=== PATIENT | male | born 1950 | race Hispanic/Latino ===

== ENCOUNTER 2017-10-01 23:43 | Inpatient (IN) | payer OTHER, SELFPAY ==
[2017-10-02 00:14] LABS: Absolute Monocytes 1.7 K/uL (0.1-1.3); Absolute Neutrophil 17.9 K/uL (1.8-8.0); Basophils % 0.2 % (0-1.3); Eosinophils % 0.1 % (0-4.4); Hematocrit 39.4 % (39.6-49.0); Lymphocytes % 4.9 % (15.3-44.8); MCH 30.1 pg (27.0-35.0); MPV 8.2 fL (7.6-11.3); Monocytes % 8.4 % (3.3-12.3); RBC Red Blood Cell Count 4.37 M/uL (4.33-5.43)
[2017-10-02] MEDS ORDERED: FENTANYL CITR 100 MCG/2 ML ONE ×2 (00:18→12:12)
[2017-10-02] MEDS ORDERED: PIPER/TAZO/NS 3.375gm 3.375 GM/100 ML BAG ONE ×2 (00:18→05:11)
[2017-10-02] MEDS ORDERED: NA CHLORIDE 0.9% 1,000 ML ONE ×2 (00:18→11:01)
[2017-10-02] MEDS ORDERED: VANCOMYCIN 1 GM/250 ML BAG ONE (00:18)
[2017-10-02] MEDS ORDERED: ONDANSETRON 4 MG/2 ML VIAL ONE (00:18)
[2017-10-02 00:21] LABS: Protime INR 1.47
[2017-10-02 00:44] LABS: ALT/SGPT 12 U/L (12-78); AST/SGOT 17 U/L (15-37); Albumin 2.1 g/dL (3.4-5.0); Alkaline Phosphatase 121 U/L (45-117); BUN Blood Urea Nitrogen 35 mg/dL (7-18); Bicarbonate 23 mmol/L (21-32); Bilirubin Direct 0.1 mg/dL (0-0.2); Bilirubin Total 0.4 mg/dL (0.2-1.0); CKMB Creatine Kinase MB < 1.0 ng/mL (0.3-3.6); Creatine Phosphokinase 32 U/L (39-308); Lipase 125 U/L (73-393); Magnesium 2.2 mg/dL (1.8-2.4); NT PRO-BNP 315 pg/mL (<125); Potassium 4.6 mmol/L (3.5-5.1); Protein, Total 8.1 g/dL (6.4-8.2); Sodium Level 128 mmol/L (136-145)
[2017-10-02 00:46] LABS: Glucose Level 441 mg/dL (74-106)
[2017-10-02 00:47] LABS: Blood Morphology Comment NOT SEEN (NOT SEEN); Platelet Estimate INCR
--- NOTE | 2017-10-02 01:39 | EDPHYS ---
Physician Documentation [facility] Name: Matt Huitron Age: 67 yrs Sex: Male : 1950 Arrival Date: 10/01/2017 Time: 23:50 Bed 6 Private MD: None, None ED Physician Felix De La Fuente HPI: 10/01 23:56 This 67 yrs old Male presents to ER via EMS with complaints of Abscess. tammy 23:56 The patient presents with an abscess of the back, The patient presents with cellulitis tammy of the back. Description: The affected area is large, confluent, draining, erythematous, fluctuant, hot, swollen. Onset: The symptoms/episode began/occurred 2 month(s) ago. Possible cause(s): unknown. Associated signs and symptoms: Pertinent positives: drainage, erythema, foreign body sensation, fever. Modifying factors: the symptoms are alleviated by remaining still, repositioning , the symptoms are aggravated by movement, pressure, squeezing the lesion and expressing the contents, touching. Severity of symptoms: At their worst the symptoms were moderate, in the emergency department the symptoms are unchanged. The patient has not experienced similar symptoms in the past. Historical: - Allergies: 23:52 No Known Allergies; fc - Home Meds: 23:52 None [Active]; fc - PMHx: 23:52 Diabetes - NIDDM; fc - PSHx: 23:52 None; fc - Immunization history:: Last tetanus immunization: unknown. - Social history:: Smoking status: Patient/guardian denies using tobacco, Patient/guardian denies using alcohol, street drugs. - Ebola Screening: : Patient negative for fever greater than or equal to 101.5 degrees Fahrenheit, and additional compatible Ebola Virus Disease symptoms Patient denies exposure to infectious person Patient denies travel to an Ebola-affected area in the 21 days before illness onset. - Family history:: not pertinent. ROS: 23:56 Constitutional: Negative for fever, chills, and weight loss, Eyes: Negative for injury, tammy pain, redness, and discharge, ENT: Negative for injury, pain, and discharge, Neck: Negative for injury, pain, and swelling, Cardiovascular: Negative for chest pain, palpitations, and edema, Respiratory: Negative for shortness of breath, cough, wheezing, and pleuritic chest pain, Abdomen/GI: Negative for abdominal pain, nausea, vomiting, diarrhea, and constipation, : Negative for injury, bleeding, discharge, and swelling, MS/Extremity: Negative for injury and deformity, Neuro: Negative for headache, weakness, numbness, tingling, and seizure, Psych: Negative for depression, anxiety, suicide ideation, homicidal ideation, and hallucinations, Allergy/Immunology: Negative for hives, rash, and allergies, Endocrine: Negative for neck swelling, polydipsia, polyuria, polyphagia, and marked weight changes, Hematologic/Lymphatic: Negative for swollen nodes, abnormal bleeding, and unusual bruising. 23:56 Back: Positive for pain at rest, pain with movement, of the right scapular area and right subscapular area. 23:56 Skin: Positive for abscess, cellulitis, swelling, of the right scapular area and right subscapular area. Exam: 23:58 Constitutional: This is a well developed, well nourished patient who is awake, alert, tammy and in no acute distress. Head/Face: Normocephalic, atraumatic. Eyes: Pupils equal round and reactive to light, extra-ocular motions intact. Lids and lashes normal. Conjunctiva and sclera are non-icteric and not injected. Cornea within normal limits. Periorbital areas with no swelling, redness, or edema. ENT: Nares patent. No nasal discharge, no septal abnormalities noted. Tympanic membranes are normal and external auditory canals are clear. Oropharynx with no redness, swelling, or masses, exudates, or evidence of obstruction, uvula midline. Mucous membranes moist. Neck: Trachea midline, no thyromegaly or masses palpated, and no cervical lymphadenopathy. Supple, full range of motion without nuchal rigidity, or vertebral point tenderness. No Meningismus. Chest/axilla: Normal chest wall appearance and motion. Nontender with no deformity. No lesions are appreciated. Respiratory: Lungs have equal breath sounds bilaterally, clear to auscultation and percussion. No rales, rhonchi or wheezes noted. No increased work of breathing, no retractions or nasal flaring. Abdomen/GI: Soft, non-tender, with normal bowel sounds. No distension or tympany. No guarding or rebound. No evidence of tenderness throughout. Male : Normal genitalia with no discharge or lesions. MS/ Extremity: Pulses equal, no cyanosis. Neurovascular intact. Full, normal range of motion. Neuro: Awake and alert, GCS 15, oriented to person, place, time, and situation. Cranial nerves II-XII grossly intact. Motor strength 5/5 in all extremities. Sensory grossly intact. Cerebellar exam normal. Normal gait. Psych: Awake, alert, with orientation to person, place and time. Behavior, mood, and affect are within normal limits. 23:58 Skin: abscess, that is moderate sized, cellulitis, that is moderate, induration, that is moderate is noted, injury, is not appreciated. Vital Signs: 23:52 BP 132 / 68; Pulse 114; Resp 20; Temp 98.9(O); Pulse Ox 99% on R/A; Weight 71.67 kg fc (R); Height 5 ft. 3 in. (160.02 cm) (R); Pain 4/10; 10/02 01:08 BP 135 / 73; Pulse 103; Resp 16; Pulse Ox 99% on R/A; Pain 0/10; ao 02:03 BP 129 / 62; Pulse 108; Resp 20; Pulse Ox 100% on R/A; Pain 0/10; ao 10/01 23:52 Body Mass Index 27.99 (71.67 kg, 160.02 cm) fc MDM: 10/01 23:50 Patient medically screened. [facility] 23:58 Data reviewed: vital signs, nurses notes, lab test result(s), EKG, radiologic studies, [facility] CT scan, plain films. 10/01 23:55 Order name: Basic Metabolic Panel; Complete Time: :32 [facility] 10/01 23:55 Order name: CBC with Diff; Complete Time: :32 [facility] 10/01 23:55 Order name: Ckmb; Complete Time: : [facility] 10/01 23:55 Order name: CPK; Complete Time: : [facility] 10/01 23:55 Order name: LFT's; Complete Time: : [facility] 10/01 23:55 Order name: Magnesium; Complete Time: : [facility] 10/01 23:55 Order name: NT PRO-BNP; Complete Time: : [facility] 10/01 23:55 Order name: PT-INR; Complete Time: : [facility] 10/01 23:55 Order name: Ptt, Activated; Complete Time: : [facility] 10/01 23:55 Order name: Troponin (emerg Dept Use Only); Complete Time: 01:32 [facility] 10/01 23:55 Order name: Lipase; Complete Time: 01:32 [facility] 10/01 23:55 Order name: Type And Screen [facility] 10/02 00:47 Order name: Manual Differential; Complete Time: 01:32 EDMS 10/02 02:53 Order name: Urine Dipstick--Ancillary (enter results) mw2 10/01 23:55 Order name: XRAY Chest (1 view) [facility] 10/01 23:55 Order name: EKG; Complete Time: 23:56 [facility] 10/01 23:55 Order name: Cardiac monitoring; Complete Time: 01:28 [facility] 10/02 01:28 Order name: Chest Abd Pelvis Wo Con EDAL 10/02 01:43 Order name: CONS Physician Consult EDAL 10/02 03:19 Order name: Urine Dipstick-Ancillary EDAL 10/02 04:11 Order name: ABO/RH no charge EDAL 10/01 23:55 Order name: EKG - Nurse/Tech; Complete Time: 01:28 [facility] 10/01 23:55 Order name: IV Saline Lock; Complete Time: 00:08 [facility] 10/01 23:55 Order name: Labs collected and sent; Complete Time: 00:08 [facility] 10/01 23:55 Order name: O2 Per Protocol; Complete Time: 00:08 [facility] 10/01 23:55 Order name: O2 Sat Monitoring; Complete Time: 00:08 [facility] 10/01 23:55 Order name: Urine Dipstick-Ancillary (obtain specimen); Complete Time: 02:40 [facility] 10/02 01:37 Order name: NPO; Complete Time: 01:38 [facility] Administered Medications: 10/02 00:27 Drug: Zosyn 3.375 grams Route: IVPB; Infused Over: 60 mins; Site: right antecubital; ao 01:40 Follow up: IV Status: Completed infusion; IV Intake: 100ml ao 00:27 Drug: fentaNYL (PF) 25 mcg Route: IVP; Site: right antecubital; ao 01:09 Follow up: Response: No adverse reaction ao 00:27 Drug: Zofran 4 mg Route: IVP; Site: right antecubital; ao 01:09 Follow up: Response: No adverse reaction ao 00:28 Drug: NS 0.9% 1000 ml Route: IV; Rate: 125 ml/hr; Site: right antecubital; ao 02:40 Follow up: IV Status: Infusion continued upon admission ao 02:30 Drug: vancoMYCIN 1 grams Route: IVPB; Infused Over: 2 hrs; Site: right antecubital; ao 04:17 Follow up: IV Status: Completed infusion; IV Intake: 200ml ao 02:30 Drug: fentaNYL (PF) 25 mcg Route: IVP; Site: left antecubital; ao 03:57 Follow up: Response: No adverse reaction ao 02:38 Drug: Insulin Regular Human 10 units {Co-Signature: ak1 (Kari Moreno RN).} Route: IVP; ao Site: right antecubital; 03:57 Follow up: Response: No adverse reaction ao 03:51 Drug: fentaNYL (PF) 25 mcg Route: IVP; Site: right antecubital; ao 03:57 Follow up: Response: No adverse reaction ao Disposition: 10/02/17 01:39 Hospitalization ordered by Estrella Powell for Inpatient Admission. Preliminary diagnosis are Type 2 diabetes mellitus - uncontrolled, Cutaneous abscess of back [any part, except buttock] - large, Elevated blood glucose level, Elevated white blood cell count, Unspecified kidney failure. - Bed requested for Telemetry/MedSurg (Inpatient). - Status is Inpatient Admission. ao - Condition is Fair. - Problem is new. - Symptoms have improved. UTI on Admission? No Signatures: Dispatcher [employer] [facility] Felix De La Fuente MD MD cha Chretien, Felicia RN FABIO Mika Ferris RN Verenice Stevens mw2 Kari Moreno RN ak1 Corrections: (The following items were deleted from the chart) 01:28 10/01 23:56 Chest Abdomen Pelvis W Con+CT.RAD.BRZ ordered. [facility] 10/02 02:36 01:39 Hospitalization Ordered by Estrella Powell MD for Inpatient Admission. Preliminary mw2 diagnosis is Type 2 diabetes mellitus - uncontrolled; Cutaneous abscess of back [any part, except buttock] - large; Elevated blood glucose level; Elevated white blood cell count; Unspecified kidney failure. Bed requested for Telemetry/MedSurg (Inpatient). Status is Inpatient Admission. Condition is Fair. Problem is new. Symptoms have improved. UTI on Admission? No. tammy 04:18 02:36 10/02/2017 01:39 Hospitalization Ordered by Estrella Powell MD for Inpatient ao Admission. Preliminary diagnosis is Type 2 diabetes mellitus - uncontrolled; Cutaneous abscess of back [any part, except buttock] - large; Elevated blood glucose level; Elevated white blood cell count; Unspecified kidney failure. Bed requested for Telemetry/MedSurg (Inpatient). Status is Inpatient Admission. Condition is Fair. Problem is new. Symptoms have improved. UTI on Admission? No. mw2
--- NOTE | 2017-10-02 01:39 | ER ---
Nurse's Notes [facility] Name: Matt Huitron Age: 67 yrs Sex: Male : 1950 Arrival Date: 10/01/2017 Time: 23:50 Bed 6 Private MD: None, None Diagnosis: Type 2 diabetes mellitus-uncontrolled;Cutaneous abscess of back [any part, except buttock]-large;Elevated blood glucose level;Elevated white blood cell count;Unspecified kidney failure Presentation: 10/01 23:50 Presenting complaint: Patient states: that he has had this "boil" on his back for the fc past 2 months. The area covers most of his lower back. Denies any fever. Transition of care: patient was not received from another setting of care. Onset of symptoms was July 2017. Risk Assessment: Do you want to hurt yourself or someone else? Patient reports no desire to harm self or others. Initial Sepsis Screen: Does the patient meet any 2 criteria? HR > 90 bpm. Yes Does the patient have a suspected source of infection? Yes: Skin breakdown/wound If YES to both, name of provider notified: Felix De La Fuente MD. Care prior to arrival: None. 23:50 Method Of Arrival: EMS: [facility] 23:50 Acuity: SURINDER 3 Historical: - Allergies: 23:52 No Known Allergies; - Home Meds: 23:52 None [Active]; fc - PMHx: 23:52 Diabetes - NIDDM; fc - PSHx: 23:52 None; - Immunization history:: Last tetanus immunization: unknown. - Social history:: Smoking status: Patient/guardian denies using tobacco, Patient/guardian denies using alcohol, street drugs. - Ebola Screening: : Patient negative for fever greater than or equal to 101.5 degrees Fahrenheit, and additional compatible Ebola Virus Disease symptoms Patient denies exposure to infectious person Patient denies travel to an Ebola-affected area in the 21 days before illness onset. - Family history:: not pertinent. Screenin:53 Abuse screen: Denies threats or abuse. Nutritional screening: No deficits noted. Tuberculosis screening: No symptoms or risk factors identified. Fall Risk Fall in past 12 months (25 points). No secondary diagnosis (0 pts). No IV (0 pts). Ambulatory Aid- Crutches/Cane/Walker (15 pts). Gait- Weak (10 pts.). Mental Status- Overestimates/Forgets Limitations (15 pts.). Total Eugene Fall Scale indicates High Risk Score (45 or more points). Fall prevention measures have been instituted. Side Rails Up X 2 Placed Close to Nursing Station Frequent Obs/Assessments Occuring As available patient and family educated on Fall Prevention Program and Strategies. Assessment: 10/02 00:05 General: Appears in no apparent distress. uncomfortable, Behavior is calm, cooperative, ao appropriate for age. Pain: Complains of pain in back Pain currently is 8 out of 10 on a pain scale. Neuro: Level of Consciousness is awake, alert, obeys commands, Oriented to person, place, time, situation, Appropriate for age Moves all extremities. Full function Speech Facial symmetry appears normal. Cardiovascular: Capillary refill < 3 seconds Patient's skin is warm and dry. Respiratory: Airway is patent Respiratory effort is even, unlabored, Respiratory pattern is regular, symmetrical. GI: Abdomen is flat, non-distended. : No signs and/or symptoms were reported regarding the genitourinary system. EENT: No signs and/or symptoms were reported regarding the EENT system. Derm: Musculoskeletal: Swelling present in back Abscess look like in the right lower back. Some serosanguinous draining noted. 01:08 Reassessment: Patient appears in no apparent distress at this time. No changes from ao previously documented assessment. Patient and/or family updated on plan of care and expected duration. Pain level reassessed. Patient is alert, oriented x 3, equal unlabored respirations, skin warm/dry/pink. Patient denies pain at this time. Patient states feeling better. 01:25 Reassessment: Received a verbal order from Dr De La Fuente to medicate patient with ao fentanyl 25 mcg. 02:03 Reassessment: Patient appears in no apparent distress at this time. Patient and/or ao family updated on plan of care and expected duration. Pain level reassessed. Patient is alert, oriented x 3, equal unlabored respirations, skin warm/dry/pink. Patient to be admitted. Waiting on admitting Dr leung. Vital Signs: 10/01 23:52 BP 132 / 68; Pulse 114; Resp 20; Temp 98.9(O); Pulse Ox 99% on R/A; Weight 71.67 kg fc (R); Height 5 ft. 3 in. (160.02 cm) (R); Pain 4/10; 10/02 01:08 BP 135 / 73; Pulse 103; Resp 16; Pulse Ox 99% on R/A; Pain 0/10; ao 02:03 BP 129 / 62; Pulse 108; Resp 20; Pulse Ox 100% on R/A; Pain 0/10; ao 10/01 23:52 Body Mass Index 27.99 (71.67 kg, 160.02 cm) ED Course: 10/01 23:50 Patient arrived in ED. fc 23:50 None, None is Private Physician. fc 23:50 Felix De La Fuente MD is Attending Physician. tammy 23:52 Triage completed. fc 23:52 Arm band placed on Patient placed in an exam room, on a stretcher. fc 23:53 Patient has correct armband on for positive identification. Placed in gown. Bed in low fc position. Call light in reach. Side rails up X 1. Pulse ox on. NIBP on. 23:53 No provider procedures requiring assistance completed. 10/02 00:00 Initial lab(s) drawn, by id, sent to lab. T\\T\\S collected, blood band applied to patient. fc Inserted saline lock: 20 gauge in right antecubital area, using aseptic technique. Blood collected. 00:22 X-ray completed. Portable x-ray completed in exam room. Patient tolerated procedure kw well. 00:24 XRAY Chest (1 view) In Process Unspecified. EDMS 00:27 Mika Ferris RN is Primary Nurse. ao 01:[address] via wheelchair. kw1 01:37 Estrella Powell MD is Hospitalizing Provider. tammy 01:43 Chest Abd Pelvis Wo Con In Process Unspecified. EDMS 01:45 CT completed. Patient tolerated procedure well. Patient moved back from CT. kw1 03:56 Patient admitted, IV remains in place. ao Administered Medications: 00:27 Drug: Zosyn 3.375 grams Route: IVPB; Infused Over: 60 mins; Site: right antecubital; ao 01:40 Follow up: IV Status: Completed infusion; IV Intake: 100ml ao 00:27 Drug: fentaNYL (PF) 25 mcg Route: IVP; Site: right antecubital; ao 01:09 Follow up: Response: No adverse reaction ao 00:27 Drug: Zofran 4 mg Route: IVP; Site: right antecubital; ao 01:09 Follow up: Response: No adverse reaction ao 00:28 Drug: NS 0.9% 1000 ml Route: IV; Rate: 125 ml/hr; Site: right antecubital; ao 02:40 Follow up: IV Status: Infusion continued upon admission ao 02:30 Drug: vancoMYCIN 1 grams Route: IVPB; Infused Over: 2 hrs; Site: right antecubital; ao 04:17 Follow up: IV Status: Completed infusion; IV Intake: 200ml ao 02:30 Drug: fentaNYL (PF) 25 mcg Route: IVP; Site: left antecubital; ao 03:57 Follow up: Response: No adverse reaction ao 02:38 Drug: Insulin Regular Human 10 units {Co-Signature: ak1 (Kari Moreno RN).} Route: IVP; ao Site: right antecubital; 03:57 Follow up: Response: No adverse reaction ao 03:51 Drug: fentaNYL (PF) 25 mcg Route: IVP; Site: right antecubital; ao 03:57 Follow up: Response: No adverse reaction ao Intake: 08 22:55 IV: 100ml; Total: 100ml. ao 23:00 IV: 200ml; Total: 300ml. ao 0807 01:40 IV: 100ml; Total: 400ml. ao 04:17 IV: 200ml; Total: 600ml. ao Outcome: 01:39 Decision to Hospitalize by Provider. tammy 03:39 Admitted to Tele accompanied by nurse, room 422. ao 03:39 Condition: stable 03:39 Instructed on the need for admit. 04:18 Patient left the ED. ao Signatures: Dispatcher [employer] Felix Yanez MD MD cha Chretien, Felicia RN Melissa Dial Alex, RN RN Starr Salguero RN ak1
[2017-10-02] MEDS ORDERED: D50W 25 GM/50 ML SYRINGE IV PRN ×2 (01:42→19:32)
[2017-10-02] MEDS ORDERED: GLUCAGON 1 MG/VIAL IM PRN ×2 (01:42→19:32)
[2017-10-02] MEDS ORDERED: INSULIN -REGULAR HUMAN 50 UNIT/0.5 ML ML ONE (02:37)
--- NOTE | 2017-10-02 03:08 | P.HP ---
Certification for Inpatient Patient admitted to: Inpatient With expected LOS: >2 Midnights Practitioner: I am a practitioner with admitting privileges, knowledge of patient current condition, hospital course, and medical plan of care. Services: Services provided to patient in accordance with Admission requirements found in Title 42 Section 412.3 of the Code of Federal Regulations Patient History Date of Service: 10/02/17 Reason for admission: abscess, sepsis History of Present Illness: Mr Huitron is a 67 years old male with history of uncontrolled DM II, who start about 2 month ago with a bump in his back. He noticed that over the time it was slowly growing. However, over the last week, he states that become bigger and painful. He denied any fever or chills. He states that was not taking good care of himself lately and he was not taking medication for his diabetes mellitus either. Lab work shows leukocytosis, 20.3K, no fever. CT back done, report still pending. Home medications list reviewed: Yes - Past Medical/Surgical History -: DM II Past Surgical History: Reviewed- Non-Contributory - Family History Family History: Reviewed- Non-Contributory - Social History Smoking Status: Former smoker Alcohol use: No CD- Drugs: No Place of Residence: Home Review of Systems 10-point ROS is otherwise unremarkable Physical Examination - Physical Exam General: Alert, In no apparent distress HEENT: Atraumatic, PERRLA, Mucous membr. moist/pink, EOMI, Sclerae nonicteric Neck: Supple, 2+ carotid pulse no bruit, No LAD, Without JVD or thyroid abnormality Respiratory: Clear to auscultation bilaterally, Normal air movement Cardiovascular: Regular rate/rhythm, Normal S1 S2 Gastrointestinal: Normal bowel sounds, No tenderness Musculoskeletal: No tenderness Integumentary: Skin lesion, Tenderness/swelling (upper back large indurated, erythematose, warmth area.), Erythema, Warmth Neurological: Normal gait, Normal speech, Normal strength at 5/5 x4 extr, Normal tone, Normal affect Lymphatics: No axilla or inguinal lymphadenopathy - Studies Laboratory Data (last 24 hrs) 10/01/17 23:59: PT 17.4 H, INR 1.47, APTT 26.2 10/01/17 23:59: WBC 20.7 H*, Hgb 13.2 L, Hct 39.4 L, Plt Count 415 H 10/01/17 23:59: Sodium 128 L, Potassium 4.6, BUN 35 H, Creatinine 1.60 H, Glucose 441 H*, Magnesium 2.2, Total Bilirubin 0.4, AST 17, ALT 12, Alkaline Phosphatase 121 H, Lipase 125 Assessment and Plan - Problems (Diagnosis) (1) Diabetes mellitus Current Visit: Yes Status: Acute Qualifiers: Diabetes mellitus type: type 2 Diabetes mellitus [employer] insulin use: without care home use Diabetes mellitus complication status: with skin complications Diabetes mellitus complication detail: with other skin complication Qualified Code(s): E11.628 - Type 2 diabetes mellitus with other skin complications (2) Abscess Current Visit: Yes Status: Acute (3) Sepsis Current Visit: Yes Status: Acute Qualifiers: Sepsis type: sepsis due to unspecified organism Qualified Code(s): A41.9 - Sepsis, unspecified organism (4) Hyponatremia Current Visit: Yes Status: Acute (5) Acute renal injury Current Visit: Yes Status: Acute - Plan Mr Huitron will be admitted to the hospital due to sepsis (leukocytosis, tachycardia) secondary to a back large abscess. Will order empiric treatment with Vancomycin and Zosyn. Surgery team consulted. Keep the patient NPO for I&D in the morning. Order HgbA1C, SSI. - Advance Directives Does patient have a Living Will: No Does patient have a Durable POA for Healthcare: No - Code Status/Comfort Care Code Status Assessed: Yes Code Status: Full Code
[2017-10-02 03:18] LABS: Urine Blood TRACE (NEG); Urine Glucose 2+ (NEG); Urine Protein 1+ (NEG); Urine pH 5.5 (5.0-7.0)
[2017-10-02] MEDS ORDERED: ACETAMINOPHEN 500 MG TAB PO PRN (03:39)
[2017-10-02] MEDS ORDERED: ONDANSETRON 4 MG/2 ML VIAL IV PRN (03:39)
[2017-10-02 04:21] VITALS: BMI 19.1
[2017-10-02] MEDS: NA CHLORIDE 0.9% 1,000 ML IV SCH ×3 (04:25→22:58)
[2017-10-02 05:27] LABS: Urine Appearance CLEAR; Urine Bilirubin NEGATIVE (NEG); Urine Blood NEGATIVE (NEG); Urine Color YELLOW; Urine Glucose 3+ (NEG); Urine Protein NEGATIVE (NEG); Urine Specific Gravity >=1.030 (1.005-1.030); Urine Urobilinogen 0.2 mg/dL (0.2-1.0)
[2017-10-02 05:41] LABS: Urine Microscopic Reflex NO UMIC
[2017-10-02] MEDS ORDERED: PIPER/TAZO/NS 3.375gm 3.375 GM/100 ML BAG IVPB SCH (06:00)
[2017-10-02] MEDS ORDERED: NA CHLORIDE 0.9% 100 ML ONE (06:34)
[2017-10-02] MEDS: INSULIN -REGULAR HUMAN 50 UNIT/0.5 ML ML SQ SCH ×4 (06:37→20:53)
[2017-10-02] MEDS ORDERED: INSULIN -REGULAR HUMAN 50 UNIT/0.5 ML ML SQ SCH (07:30)
[2017-10-02] MEDS ORDERED: PNEUMOCOCCAL VACCINE 0.5 ML IMVAC ONE (08:00)
--- NOTE | 2017-10-02 08:30 | RAD REPORT ---
EXAM DESCRIPTION: RAD - Chest Single View - 10/02/2017 12:25 am CLINICAL HISTORY: COUGH Chest pain. COMPARISON: No comparisons FINDINGS: Portable technique limits examination quality. The lungs are grossly clear. The heart is normal in size. No displaced fractures. IMPRESSION: No acute intrathoracic process suspected.
--- NOTE | 2017-10-02 08:39 | RAD REPORT ---
EXAM DESCRIPTION: CT - Chest Abd Pelvis Wo Con - 10/02/2017 6:36 am CLINICAL HISTORY: Chest and abdomen pain. COUGH COMPARISON: No comparisons TECHNIQUE: A noncontrast examination was performed. This limits vascular, solid organ GI tract asses sment. All CT scans are performed using dose optimization technique as appropriate and may include automated exposure control or mA/KV adjustment according to patient size. FINDINGS: The lungs are clear.No pleural or pericardial effusion.No intrathoracic adenopathy. The liver, spleen, pancreas, adrenal glands and kidneys are within normal limits for a noncontrast st udy. No bowel obstruction, free air, free fluid or abscess. Normal appendix. No pathologic lymphadenopath y in the abdomen or pelvis. A large crescentic soft tissue density collection is seen along the right posterior chest/ upper abdo men subcutaneous tissues measuring 15 x 4 x 16 cm. There is significant skin thickening is related to this. No gas is present within the collection. No underlying bony erosion. IMPRESSION: Large crescentic soft tissue density subcutaneous collection as detailed with adjacent s kin thickening is probably infectious in etiology. Assessment is limited on noncontrast study and dir ect visualization is advised. No evidence of extension of this finding into the chest or abdominal ca vities and no adjacent bony erosion.
[2017-10-02] MEDS: PIPER/TAZO/NS 3.375gm 3.375 GM/100 ML BAG IVPB SCH ×2 (09:37→16:37)
--- NOTE | 2017-10-02 12:11 | EKG ---
Test Date: 2017-10-02 Test Time: 03:21:53 Ssis Architect: RONNELL MEASUREMENT RESULTS: Intervals: Rate: 115 TX: 140 QRSD: 90 QT: 352 QTc: 486 [place]: P: 62 TX: 140 QRS: 79 T: 58 INTERPRETIVE STATEMENTS: Sinus tachycardia Otherwise normal ECG No previous ECG available for comparison Electronically Signed On 10-02-17 12:11:18 CDT by Som Bruce
[2017-10-02] MEDS ORDERED: LIDOCAINE 2% MPF 5 ML VIAL ONE (12:12)
[2017-10-02] MEDS ORDERED: PROPOFOL 200 MG/20 ML VIAL IV ONE (12:12)
[2017-10-02] MEDS ORDERED: MIDAZOLAM HCL 2 MG/2 ML INJ ONE (12:12)
--- NOTE | 2017-10-02 13:46 | P.OP ---
Preoperative diagnosis: Infected wound right back Postoperative diagnosis: same, Necrotizing infection Primary procedure: Excisional Debridement R Back 20x20 cm to deep sq Secondary procedure: Pulse Lavage Anesthesia: gen Estimated blood loss: min Specimen: pus and infected tissue Findings: as above Complications: None Transferred to: Recovery Room Condition: Good
--- NOTE | 2017-10-02 15:09 | PREOPCON ---
Date of Consultation: 10/02/2017 Reason For Consultation: Abscess, sepsis right back. History Of Present Illness: The patient is a 67-year-old gentleman with multiple medical problems an d noticed that over the last 3 months he has had this small mass increasing in size. He is not compl aining of pain, minimal discharge. It has grown quite a bit. He came in, he was found to be septic and with leukocytosis, and I was consulted. He is awake, and alert, but laying on his left side stephie use of the pain. No sore throat, runny nose, cough, headaches, or dizziness. No chest pain. Review of Systems: Otherwise unremarkable. Past Medical History: Diabetes type 2. Past Surgical History: Negative. Allergies: NO ALLERGIES. Social History: He does not smoke. Drinks alcohol. Family History: Noncontributory. Physical Examination: Vital Signs: Stable. He is afebrile. He is awake, alert, and oriented x3. Head and Neck: No masses. Chest: Clear. Heart: S1, S2. Abdomen: Soft. Extremities: Neurovascularly intact. Neuro: Nonfocal. Skin: In the right mid back, extending from the midline towards the midaxillary line there is approx imately a 20 x 20 cm area of erythema, warmth, central necrosis and tenderness. Laboratory Data: White count is 20.7, with a left shift. INR is 1.47. Glucose is 441. His remaind er of the electrolytes are reviewed. He has hyponatremia and dehydrated. Assessment: Infected wound, right back. CT scan was reviewed, which shows infection to be limited t o the subcutaneous space. It is not going into the intrathoracic or intraperitoneal cavity. Recommendations: Admit, n.p.o., IV fluid, IV antibiotic. The patient will need an excisional debrid ement of this large infected wound, which will take quite some time to heal. Risks, benefits, and al ternatives were explained to the patient. /MODL Voice ID: [id number] Report ID: [id number]
[2017-10-02] MEDS: HYDROCODONE/APAP 7.5/325 MG TAB PO PRN (20:52)
--- NOTE | 2017-10-02 20:57 | PN ---
Date of Progress Note: 10/02/2017 Code Status: Full. Subjective: The patient is seen and examined. Chart reviewed and case discussed with RN and Dr. Poe. The patient is going for surgery today for abscess in his back, which is fairly large-sized. Review of Systems: Negative except as above. Medications: List reviewed. Physical Examination: Vital Signs: Temperature 97.2, heart rate 78, blood pressure 106/52, respirations 16, O2 99% on room air. General: Awake, alert, oriented x3, in some moderate distress. Elderly male, ill-appearing, cachectic, BMI 19, frail. CV: S1, S2. No murmurs. Regular rate and rhythm. Peripheral pulses present. Respiratory: Moving air well bilaterally. No wheezing, stridor, or use of accessory muscles. Gastrointestinal: Abdomen is soft, nontender, nondistended. Positive bowel sounds. Extremities: No clubbing, cyanosis, or edema. Neuro: Nonfocal. Skin: Large abscess on the back close to midline on the right side. Laboratory Data: Glucose 228. Hemoglobin A1c 12.8%. Wound cultures pending. Assessment And Plan: A 67-year-old male with: 1. Sepsis secondary to abscess. We will continue IV fluid resuscitation and IV antibiotics. Follow up on cultures 2. Abscess of back toward the right, status post incision and drainage by Dr. Poe. We will continue with IV antibiotics, follow up on cultures. The patient will likely need wound VAC and wound care. May need to be set up with LTAC or SNF if the patient has insurance. 3. Diabetes mellitus type 2 with hyperglycemia without insulin, uncontrolled. Hemoglobin A1c greater than 12. We will adjust medications. Continue sliding scale. 4. Hyponatremia. We will monitor sodium level. 5. Acute kidney injury. We will monitor creatinine and avoid nephrotoxins. Unknown baseline. We will continue to monitor. 6. Gastrointestinal and deep venous thrombosis prophylaxis with PPI and SCDs. No chemical anticoagulation due to surgery. /MANNY Voice ID: [id number] Report ID: [id number] PETAR
[2017-10-02] MEDS ORDERED: VANCOMYCIN 1 GM in NA CHLORIDE 0.9% 500 ML IVPB SCH (21:00)
[2017-10-02] MEDS ORDERED: HYDROMORPHONE HCL 1 MG/ML INJ IV PRN (22:37)
[2017-10-03] MEDS: PIPER/TAZO/NS 3.375gm 3.375 GM/100 ML BAG IVPB SCH ×3 (00:44→16:49)
--- NOTE | 2017-10-03 01:55 | OP ---
Date of Procedure: 10/02/2017 Surgeon: Gregorio Poe MD Preoperative Diagnosis: Infected wound, right back. Postoperative Diagnosis: Necrotizing fasciitis. Procedure Performed: Excisional debridement necrotizing infected wound to deep subcutaneous tissue 2 0 cm x 20 cm. Pulse lavage. Estimated Blood Loss: Minimal. Specimen: Pus and necrotic tissue. Findings: As above. Anesthesia: General. Complications: None. Disposition: The patient tolerated the procedure in stable condition and taken to Recovery in good g eneral condition. Procedure In Detail: The patient was brought to the OR and placed in supine position. General anesth esia was begun. The patient placed in left lateral position, prepped and draped in the usual sterile fashion. Marcaine 0.5% was infiltrated locally for postop pain control. Then, sharp dissection pro ceeded and approximately a 20 cm x 20 cm incision was made down through the deep subcutaneous tissue. There was necrotizing tissue with pus oozing everywhere. Cultures were done. The dissection proce eded all the way down to the muscle layer, but the muscle was not involved as it was just above the f ascia and this was all excised and then all the edges. I went all the way to the healthy tissue that I could reach and then no further oozing or pus was seen. Everything was excised and sent to [facility]. Cultures were sent to Pathology. Wound was irrigated. Bleeding controlled with cautery. Then Betadine containing saline solution was used as a pulse lavage and after that regular saline was use d. Complete evacuation of all necrotic tissue was obtained, wound irrigated, bleeding controlled wit h cautery and then wet-to-dry normal saline dressing change applied. The patient tolerated the proce dure in stable condition and taken to Recovery in good general condition. /MODL Voice ID: [id number] Report ID: [id number]
[2017-10-03 04:20] LABS: Absolute Lymphocytes (CBC) 1.2 K/uL (0.7-4.9); Absolute Monocytes 1.1 K/uL (0.1-1.3); Absolute Neutrophil 18.4 K/uL (1.8-8.0); Basophils % 0.4 % (0-1.3); Eosinophils % 0.2 % (0-4.4); Hematocrit 35.4 % (39.6-49.0); Lymphocytes % 5.6 % (15.3-44.8); MCH 30.2 pg (27.0-35.0); MCV 89.4 fL (80-100); MPV 8.1 fL (7.6-11.3); Monocytes % 5.4 % (3.3-12.3); RBC Red Blood Cell Count 3.96 M/uL (4.33-5.43)
[2017-10-03 04:32] LABS: Potassium 3.6 mmol/L (3.5-5.1)
[2017-10-03] MEDS ORDERED: POTASSIUM CL SA 10 MEQ TAB PO ONE (04:43)
[2017-10-03] MEDS ORDERED: VANCOMYCIN/NS 1 gm 1 GM/250 ML BAG IV SCH (05:00)
[2017-10-03] MEDS: INSULIN -REGULAR HUMAN 50 UNIT/0.5 ML ML SQ SCH ×4 (08:47→20:46)
[2017-10-03] MEDS: NA CHLORIDE 0.9% 1,000 ML IV SCH (08:48)
[2017-10-03] MEDS ORDERED: INSULIN DETEMIR 100 UNIT/1 ML INSULIN SQ SCH (12:04)
--- NOTE | 2017-10-03 14:51 | PN ---
Date of Progress Note: 10/03/2017 Subjective: The patient is awake, alert. No complaint. Objective: Vital signs: Stable, afebrile. Back: Wound exam is clean. No purulence. No increase in erythema around the edges of the wound. Laboratory Data: Cultures pending. Assessment: Status post excisional debridement of a necrotizing fasciitis wound on the back. Recommendation: Continue IV antibiotics. As he still has leukocytosis, we will await culture result s and I will order a wound VAC for the patient. Plan of care discussed with Dr. Casiano. JEFF/MANNY Voice ID: [id number] Report ID: [id number]
--- NOTE | 2017-10-03 14:52 | PN ---
Date of Progress Note: 10/03/2017 Subjective: The patient is seen and examined. Chart reviewed and case discussed with Dr. Poe. Th e patient did well postoperatively. Yesterday, did not complain of any pain, tolerating his diet. Review of Systems: Negative except as above. Medications: List reviewed. Physical Examination: Vital Signs: Temperature 97, heart rate 91, blood pressure 128/63, respirations 18, O2 100% on room air. General: Awake, alert, oriented x3, not in any acute distress. Ill-appearing male, frail, cachectic , BMI 19. CV: S1, S2. No murmurs. Peripheral pulses present. Regular rate and rhythm. Respiratory: Clear to auscultation bilaterally. No wheezing. No stridor. No use of accessory musc les. Gastrointestinal: Abdomen is soft, nontender, nondistended. Positive bowel sounds. Extremities: No clubbing, cyanosis, or edema. Neurologic: Nonfocal. Skin: Back has large defect after surgery. Clean, dry, intact. No drainage. Laboratory Data: Sodium 139, potassium 3.6, chloride 105, CO2 27, BUN 31, creatinine 1.3, glucose 20 2. Hemoglobin A1c is 12.8%. Calcium 8.6. WBC 20.8, H and H are 12 and 35.4, platelets 403, neutrop hils 88%. Wound culture from the back showing coagulase positive Staph aureus. Blood cultures not d one. Assessment And Plan: A 67-year-old male with: 1.Abscess of the back status post incision and drainage by Dr. Poe. He feels that this was likely necrotizing fasciitis. We will continue with broad-spectrum IV antibiotics. Culture showing staph aureus preliminarily. We will set of wound VAC and continue wound care. The patient will likely nee d to LTAC or SNF set up. White count still elevated. We will continue to monitor closely. He does have high mortality rate. 2.Diabetes mellitus type 2 with hyperglycemia, non-insulin requiring, uncontrolled. Hemoglobin A1c is 12.8%. We will continue sliding scale insulin and add long-acting insulin. 3.Sepsis secondary to abscess. Continue IV fluids and IV antibiotics. Cultures so far growing Stap h aureus. Continue broad-spectrum IV antibiotics. 4.Hyponatremia, corrected. We will continue to monitor sodium level. 5.Acute kidney injury. Creatinine now normalized. 6.Gastrointestinal and deep venous thrombosis prophylaxis with PPI and we will add Lovenox. /MANNY Voice ID: [id number] Report ID: [id number]
[2017-10-03] MEDS: ENOXAPARIN 40 MG/0.4 ML SQ SCH (16:48)
[2017-10-03] MEDS: HYDROCODONE/APAP 7.5/325 MG TAB PO PRN (16:49)
[2017-10-04] MEDS: PIPER/TAZO/NS 3.375gm 3.375 GM/100 ML BAG IVPB SCH ×3 (00:41→17:11)
[2017-10-04] MEDS: NA CHLORIDE 0.9% 1,000 ML IV SCH ×2 (00:42→04:09)
[2017-10-04] MEDS: HYDROCODONE/APAP 7.5/325 MG TAB PO PRN ×3 (00:43→20:53)
[2017-10-04] MEDS: VANCOMYCIN/NS 1 gm 1 GM/250 ML BAG IV SCH (04:09)
[2017-10-04 04:28] LABS: Magnesium 2.1 mg/dL (1.8-2.4); Potassium 3.9 mmol/L (3.5-5.1)
[2017-10-04] MEDS ORDERED: POTASSIUM CL SA 10 MEQ TAB PO ONE (04:56)
[2017-10-04 07:43] LABS: Absolute Lymphocytes (CBC) 1.4 K/uL (0.7-4.9); Absolute Monocytes 0.6 K/uL (0.1-1.3); Absolute Neutrophil 11.6 K/uL (1.8-8.0); Basophils % 0.5 % (0-1.3); Eosinophils % 1.1 % (0-4.4); Hematocrit 37.2 % (39.6-49.0); Lymphocytes % 10.1 % (15.3-44.8); MCH 30.6 pg (27.0-35.0); MCV 90.7 fL (80-100); Monocytes % 4.5 % (3.3-12.3); RBC Red Blood Cell Count 4.11 M/uL (4.33-5.43)
[2017-10-04] MEDS ORDERED: INSULIN DETEMIR 100 UNIT/1 ML INSULIN SQ SCH (08:00)
[2017-10-04] MEDS: INSULIN -REGULAR HUMAN 50 UNIT/0.5 ML ML SQ SCH ×4 (08:57→20:54)
[2017-10-04] MEDS: INSULIN DETEMIR 100 UNIT/1 ML INSULIN SQ SCH ×2 (08:58→20:55)
--- NOTE | 2017-10-04 11:06 | PN ---
Date of Progress Note: 10/04/2017 Subjective: The patient is awake, alert. No complaints. Objective: Vital Signs: Stable. Afebrile. Extremities: Wound VAC is in place. Laboratory Data: White count is down to 13.8. Assessment: Status post excision and debridement of necrotizing fasciitis on his right back. Cultur es are growing out Staph aureus, sensitive to the current medication. Recommendations: Continue wound VAC and IV antibiotics. Discharge planning is in progress. JEFF/MANNY Voice ID: [id number] Report ID: [id number]
[2017-10-04] MEDS ORDERED: PNEUMOCOCCAL VACCINE 0.5 ML IMVAC ONE (13:00)
[2017-10-04] MEDS ORDERED: TRAMADOL HCL 50 MG TAB PO PRN (13:55)
--- NOTE | 2017-10-04 13:58 | P.PN ---
Subjective Date of Service: 10/04/17 Primary Care Provider: none Chief Complaint: abscess, sepsis Subjective: Doing well Physical Examination - Vital Signs Temperature: 98.2 F Blood Pressure: 145/66 Pulse: 77 Respirations: 18 Pulse Ox (%): 100 - Physical Exam General: Alert, In no apparent distress, Oriented x3, Cooperative HEENT: Atraumatic Neck: Supple Respiratory: Clear to auscultation bilaterally, Normal air movement Cardiovascular: Normal pulses, Regular rate/rhythm Gastrointestinal: Normal bowel sounds, Soft and benign, Non-distended, No tenderness, No masses, No rebound, No guarding Musculoskeletal: No tenderness, No warmth Integumentary: Other (Wound vac in place) Neurological: Normal speech, Normal strength at 5/5 x4 extr, Normal tone, Normal affect - Studies Medications List Reviewed: Yes Assessment & Plan - Problems (Diagnosis) (1) Abscess Onset Date: 10/02/17 Current Visit: Yes Status: Acute (2) Acute renal injury Onset Date: 10/02/17 Current Visit: Yes Status: Resolved Plan: This appears resolved. Will discontinue IV fluids. Patient taking oral intake well. Patient being assessed for skilled placement. Patient has abscess to the back now with wound VAC. Patient will need to continue with wound care and antibiotic treatment. (3) Diabetes mellitus Onset Date: 10/02/17 Current Visit: Yes Status: Chronic Plan: Diabetes still out of control. Will increase Levemir for better control. Qualifiers: Diabetes mellitus type: type 2 Diabetes mellitus termination clerk insulin use: without termination clerk use Diabetes mellitus complication status: with skin complications Diabetes mellitus complication detail: with other skin complication Qualified Code(s): E11.628 - Type 2 diabetes mellitus with other skin complications (4) Hyponatremia Onset Date: 10/02/17 Current Visit: Yes Status: Resolved Plan: This has resolved. Will discontinue IV fluids. (5) Sepsis Onset Date: 10/02/17 Current Visit: Yes Status: Acute Plan: This appears improved. Wound culture positive for Staph aureus. Continue with wound VAC and wound care. Patient being assessed for skilled placement. Qualifiers: Sepsis type: sepsis due to unspecified organism Qualified Code(s): A41.9 - Sepsis, unspecified organism Discharge Plan: Other (Skilled placement) Plan to discharge in: 24 Hours Time Spent Managing Pts Care (In Minutes): 55
[2017-10-04] MEDS: ENOXAPARIN 40 MG/0.4 ML SQ SCH (17:25)
[2017-10-05] MEDS: PIPER/TAZO/NS 3.375gm 3.375 GM/100 ML BAG IVPB SCH ×3 (00:23→17:02)
[2017-10-05 05:12] LABS: Absolute Lymphocytes (CBC) 1.7 K/uL (0.7-4.9); Absolute Monocytes 0.7 K/uL (0.1-1.3); Absolute Neutrophil 8.2 K/uL (1.8-8.0); Basophils % 0.3 % (0-1.3); Eosinophils % 2.3 % (0-4.4); Hematocrit 31.9 % (39.6-49.0); MCH 30.6 pg (27.0-35.0); MCV 88.4 fL (80-100); MPV 7.6 fL (7.6-11.3); Monocytes % 6.5 % (3.3-12.3); RBC Red Blood Cell Count 3.61 M/uL (4.33-5.43)
[2017-10-05 05:33] LABS: BUN Blood Urea Nitrogen 14 mg/dL (7-18); Bicarbonate 30 mmol/L (21-32); Glucose Level 216 mg/dL (74-106); Magnesium 2.2 mg/dL (1.8-2.4); Potassium 3.9 mmol/L (3.5-5.1); Sodium Level 141 mmol/L (136-145)
[2017-10-05] MEDS: VANCOMYCIN/NS 1 gm 1 GM/250 ML BAG IV SCH (05:50)
[2017-10-05 05:56] LABS: Blood Morphology Comment NOT SEEN (NOT SEEN); Platelet Estimate INCR
[2017-10-05] MEDS ORDERED: POTASSIUM CL SA 10 MEQ TAB PO ONE (06:30)
[2017-10-05] MEDS: INSULIN -REGULAR HUMAN 50 UNIT/0.5 ML ML SQ SCH ×3 (08:47→17:02)
[2017-10-05] MEDS: INSULIN DETEMIR 100 UNIT/1 ML INSULIN SQ SCH (08:48)
[2017-10-05] MEDS ORDERED: HYDROCORTISONE 1 % CREAM 30GM TOP PRN (12:08)
--- NOTE | 2017-10-05 14:44 | PN ---
Date of Progress Note: 10/05/2017 Subjective: The patient seen and examined, chart reviewed, and case discussed with RN and Dr. Poe. The patient doing well. He did complain of some itchiness and rash on his scalp, asking for some c ream. Otherwise, pain is well controlled. Review of Systems: Negative except as above. Medications: List reviewed. Objective: Vital Signs: Temperature 97.3, heart rate 86, blood pressure 159/84, respirations 18, O2 99% on room air. General: awake, alert, oriented x3, elderly male, in no acute distress. CV: S1, S2. No murmurs. Regular rate and rhythm. Peripheral pulses present. Respiratory: Moving air well bilaterally. No wheezing Gastrointestinal: Abdomen is soft, nontender , nondistended. Positive bowel sounds. Extremities: No clubbing, cyanosis, or edema. Skin: The patient has a wound VAC placed on the back. No surrounding erythema. No drainage. Neurologic: Nonfocal. Laboratory Data: Sodium 141, potassium 3.9, chloride 105, CO2 30, BUN 14, creatinine 0.8, glucose 21 6, calcium 8.7, magnesium 2.2. WBC 10.9, H and H 11.1, 31.9, platelets 437, neutrophils 74%, 1% band s. Culture shows staph aureus, methicillin sensitive. No blood cultures available. Assessment: A 67-year-old male with; 1.Abscess of the back, status post incision and drainage by Dr. Poe. Wound culture showing methic illin-sensitive Staphylococcus aureus. We will continue with IV antibiotics. Continue wound care an d wound VAC in place. The patient will need to be transferred to group home facility once accep jose e. Currently improving. White count has normalized. 2.Diabetes mellitus type 2 with hyperglycemia, [id number], uncontrolled. Hemoglobin A1c is 12.8%. We will continue sliding scale insulin and Levemir. 3.Sepsis secondary to abscess, resolving. 4.Hyponatremia, corrected. 5.Acute kidney injury, resolved. We will avoid NSAIDs and nephrotoxins. 6.Gastrointestinal and deep venous thrombosis prophylaxis, PPI and Lovenox. Plan: Continue antibiotics, group home facility placement. We will provide hydrocortisone crea m for scalp rash. SA/MODL Voice ID: [id number] Report ID: [id number]
[2017-10-05] MEDS: ENOXAPARIN 40 MG/0.4 ML SQ SCH (17:01)
[2017-10-05 19:20] VITALS: BP 148/75; TEMP 97.3
[2017-10-05 22:20] VITALS: O2SAT 98
[2017-10-05] MEDS ORDERED: VANCOMYCIN/NS 1 gm 1 GM/250 ML BAG IV SCH (23:00)
--- NOTE | 2017-10-06 03:34 | DS ---
Date of Discharge: 10/05/2017 Consultants: Dr. Poe with General Surgery. Procedure: On 10/02/2017, excisional debridement right back 20 x 20 cm to deep subcutaneous tissue. Admitting Diagnoses: 1. Abscess. 2. Sepsis. 3. Hyponatremia. 4. Acute kidney injury. 5. Diabetes mellitus type 2 with a long-term use of insulin. Discharge Diagnoses: 1. Sepsis, resolved, secondary to abscess. 2. Abscess of the back, status post incision and drainage. Wound culture growing MSSA. Wound VAC in place. 3. Diabetes mellitus type 2 with hyperglycemia, non-insulin requiring. 4. Hyponatremia, corrected. 5. Acute kidney injury, resolved. Hospital Course: The patient is a 67-year-old male with past medical history of diabetes, uncontrolled with hemoglobin A1c of 12.8%, comes in with a 2-month history of growing furuncle in his back which had become abscessed, painful. The patient was found to be septic. He had a WBC count of 20,000. The patient was seen by General Surgery and was taken for I and D of the abscess. Unfortunately, blood cultures were not obtained; however, wound culture grew methicillin sensitive Staph aureus. The patient did well postoperatively. Wound VAC was placed. His sepsis resolved. His WBC count normalized. The patient was started on long-acting insulin for his diabetes. He was counseled regarding compliance. The [facility] and [facility]. The patient was then discharged to the long term in a stable condition. Medications: As per medication reconciliation list. Followup: Follow up with primary care physician in 1 week. Follow up with surgeon, Dr. Poe, in 7-10 days. Return to ER for worsening condition. Diet: Diabetic. Activity: As tolerated. Physical Examination: please see progress note dictated on day of discharge. Total time spent discharging the patient was 34 minutes. /MANNY Voice ID: [id number] Report ID: [id number] PETAR
== END 2017-10-05 20:00 | DRG 853 ==
LOC: EDBD 23:43 → ER 23:43 → ERHOLD 10-02 01:39 → 4TH 10-02 03:08
PROVIDERS: ADMIT Internal Medicine; ATTEND Family Medicine
PROC: 0JB70ZZ Excision of Back Subcutaneous Tissue and Fascia, Open Approach (ICD-10-PCS; principal; 2017-10-02 13:15)
DX: A41.9 Sepsis, unspecified organism (principal); M72.6 Necrotizing fasciitis; L02.212 Cutaneous abscess of back [any part, except buttock and flank]; L03.312 Cellulitis of back [any part except buttock and flank]; E87.1 Hypo-osmolality and hyponatremia; N17.9 Acute kidney failure, unspecified; E11.22 Type 2 diabetes mellitus with diabetic chronic kidney disease; N18.9 Chronic kidney disease, unspecified; B95.61 Methicillin susceptible Staphylococcus aureus infection as the cause of diseases classified elsewhere; E11.65 Type 2 diabetes mellitus with hyperglycemia; E86.0 Dehydration; Z87.891 Personal history of nicotine dependence
CPT/HCPCS: 36415; 71045; 71250; 74176; 80048; 80076; 80202; 81003; 82550; 82553; 82962; 83036; 83690; 83735; 83880; 84484; 85025; 85610; 85730; 86850; 86900; 86901; 87070; 87075; 87077; 87186; 87205; 88304; 93005; 99285; J1170; J1650; J2250; J2405; J2543; J3010; J3370; J7030